=== PATIENT | female | born 1965 ===

== ENCOUNTER 2019-07-17 08:30 | Inpatient (IN) | payer OTHER ==
[~2019-07-17] VITALS: Ht 160 cm; Wt 113.4 kg
[2019-07-17] MEDS ORDERED: FLAGYL500MG PO (09:59)
[2019-07-17] MEDS ORDERED: SLOW RELEASE I160 M1 PO (10:00)
[2019-07-17] MEDS ORDERED: MAXIMUM D310000 UNIT PO (10:00)
[2019-07-23] MEDS ORDERED: OXYC1TAB9 PO (06:28)
[2019-07-23] MEDS ORDERED: IBU600 MG PO (06:29)
[2019-07-23] MEDS ORDERED: TUSSI-PRES LIQ474 ML PO (06:29)
[2019-07-23] MEDS ORDERED: LEVSIN/SL0.125 MG SL (06:30)
== END 2019-07-23 08:56 | DRG 743 ==
LOC: O/R 08:30 → SURH 07-21 08:30 → OB/GYN 07-21 15:28
PROVIDERS: ADMIT Obstetrics & Gynecology Gynecology
PROC: 0UT70ZZ Resection of Bilateral Fallopian Tubes, Open Approach (ICD-10-PCS; 2019-07-21)
PROC: 0UT90ZZ Resection of Uterus, Open Approach (ICD-10-PCS; principal; 2019-07-21 08:30)
DX: D25.1 Intramural leiomyoma of uterus (principal); D25.0 Submucous leiomyoma of uterus; N72 Inflammatory disease of cervix uteri

== ENCOUNTER 2021-05-05 09:26 | Outpatient (CLI) | payer OTHER ==
[~2021-05-05 09:26] MED LIST: FLAGYL500MG PO; IBU600 MG PO; LEVSIN/SL0.125 MG SL; MAXIMUM D310000 UNIT PO; OXYC1TAB9 PO; SLOW RELEASE I160 M1 PO; TUSSI-PRES LIQ474 ML PO
== END 2021-05-05 10:01 | disposition home or self-care (01) ==
LOC: SONOGRAMA 09:26
PROVIDERS: ATTEND Pathology Anatomic Pathology & Clinical Pathology
DX: E04.1 Nontoxic single thyroid nodule (principal)